=== PATIENT | female | born 1985 | race African-American/Black ===

== ENCOUNTER 2019-09-11 13:32 | Inpatient (IN) | payer BC, MEDICAID, OTHER ==
[2019-09-21] MEDS ORDERED: hydrALAZINE 20 MG/ML VIAL SLOW IVP PRN ×2 (16:06→23:15)
[2019-09-21] MEDS ORDERED: Ondansetron PF 4 MG/2 ML Vial IVP PRN ×3 (16:06→23:15)
[2019-09-21] MEDS ORDERED: Promethazine HCl 25 MG/ML VIAL IM PRN ×3 (16:06→23:15)
[2019-09-21 16:13] VITALS: BMI 37.5
[2019-09-21] MEDS ORDERED: Lactated Ringer's 1,000 ML IV SCH (16:15)
[2019-09-21 16:17] LABS: Hemoglobin 9.4 g/dL (12.0-16.0); Mean Corpuscular HGB CONC 34.5 g/dL (32.0-36.0); Mean Corpuscular Hemoglobin 30.5 pg (27.0-31.0); Mean Corpuscular Volume 88.5 fL (78.0-98.0); Mean Platelet Volume 7.8 fL (7.4-10.4); Platelet Count 266 thou/uL (130-400); RBC Distribution Width 13.9 % (11.5-14.5); Red Blood Cell (RBC) Count 3.07 mill/uL (4.20-5.40); White Blood Cell (WBC) Count 7.7 thou/uL (4.8-10.8)
[2019-09-21 16:57] LABS: Syphilis Antibody Nonreactive (Nonreactive); Syphilis Antibody Index 0.06 S/CO (<1.00 Non-Reactive)
[2019-09-21 16:58] LABS: HBSAg Index 0.26 S/CO (0-0.99); Hep B Surf Ag Non-Reactive S/CO (NonReactive)
[2019-09-21] MEDS ORDERED: CEFAZOLIN 2 GM in Premix Bag 1 BAG IVPB SCH (17:45)
[2019-09-21] MEDS ORDERED: Bicitra 30 ML UDCUP PO SCH (17:45)
--- NOTE | 2019-09-21 18:59 | PDOC.LDHP ---
Labor and Delivery H&P Chief complaint: scheduled section HPI: 34 y/o at 38 weeks and 2 days, presents for scheduled medically indicated . This patient has a history of macrosomia previously with 37 weeks . At that time the lower uterus was described as very thin with 11 and a 1/2 pound fetus. GDM negative at that time. This week, the patient was again suspected to have macrosomia with 11 pound 9 ounce EFW, and was furthermore breech. I feel given the thinner uterus and size of this fetus, the risk of life-threatening complications (including intra- operative hemorrhage, need to T the Uterus, Injury the Uterine vessels, Uterine Atony, and injury to the fetus during breech delivery, etc.) only increase with waiting. The society of Maternal Medicine has also indicated that Repeat C -section may be reasonable in some case at 38 weeks with high risk pregnancies such as this. This case was also discussed with Dr. Maurilio Manzano MD, [employer] supervisor of [employer] who agreed that 38 week delivery was very reasonable in this case for suspected macrosomia, repeat , and breech presentation. Current gestational age (weeks): 38 Grav: 6 Para: 3 Abnormal US findings: Yes ( Macrosomia) Current medications: pre- vitamins Previous surgical history: low tranverse CS Allergies/Adverse Reactions: Allergies Allergy/AdvReac Type Severity Reaction Status Date / Time No Known Allergies Allergy Verified 09/21/19 17:35 Social history: none - Physical Exam Vital signs reviewed and normal: yes General: NAD Heart: RRR Lungs: CTAB Abdomen: gravid Extremeties: no edema FHT: category 1 - Assessment L&D Assessment: scheduled repeat section - Plan Plan: admit to L&D, to OR for section
[2019-09-21] MEDS ORDERED: MORPHINE 5 MG/10 ML PF VIAL ONE (19:37)
[2019-09-21] MEDS ORDERED: EPINEPHrine 1 MG/ML AMP ONE (19:38)
[2019-09-21] MEDS ORDERED: Oxytocin 10 UNITS/ML VIAL ONE (19:38)
[2019-09-21] MEDS ORDERED: Ondansetron PF 4 MG/2 ML Vial ONE (19:38)
[2019-09-21] MEDS ORDERED: Dexamethasone 4 mg/ml Vial ONE (19:38)
[2019-09-21] MEDS ORDERED: ePHEDrine/0.9% NaCl/PF SYRINGE 50 mg/10 ml ONE (19:38)
[2019-09-21] MEDS ORDERED: Misoprostol 200 MCG TAB ONE (19:39)
[2019-09-21] MEDS ORDERED: Methylergonovine 0.2 MG/ML VIAL ONE (19:40)
[2019-09-21] MEDS ORDERED: Carboprost 250 MCG/ML AMP ONE (19:40)
[2019-09-21] MEDS ORDERED: PHENYLEPHRINE-NS 100 MCG/ML 10 ML SYRINGE ONE (19:54)
[2019-09-21] MEDS ORDERED: Naloxone HCl 0.4 mg/ml Vial IV PRN (20:33)
[2019-09-21] MEDS ORDERED: Promethazine HCl 25 MG SUPP PR PRN (20:33)
[2019-09-21] MEDS ORDERED: Naloxone HCl 0.4 mg/ml Vial IVP PRN ×2 (20:33)
[2019-09-21] MEDS ORDERED: diphenhydrAMINE 50 MG/ML VIAL IVP PRN (20:33)
[2019-09-21] MEDS ORDERED: Communication Order-Pharmacy FS SCH (20:45)
[2019-09-21] MEDS ORDERED: NS / Oxytocin 40 units/1000ml 1,000 ML ONE (21:22)
[2019-09-21] MEDS ORDERED: Ketorolac Tromethamine 30 MG/ML VIAL ONE (21:53)
[2019-09-21] MEDS: Ketorolac Tromethamine 30 MG/ML VIAL IVP PRN (21:57)
[2019-09-21] MEDS ORDERED: Lanolin Ointment 7 GM TUBE TOP PRN (23:15)
[2019-09-21] MEDS ORDERED: Bisacodyl 10 MG SUPP PR PRN (23:15)
[2019-09-21] MEDS ORDERED: diphenhydrAMINE 25 MG CAP PO PRN (23:15)
[2019-09-21] MEDS ORDERED: HYDROcodone/Acetaminophen 5/325 mg Tablet PO PRN (23:15)
[2019-09-21] MEDS ORDERED: Misoprostol 200 MCG TAB PR PRN (23:15)
[2019-09-21] MEDS ORDERED: Methylergonovine 0.2 MG/ML VIAL IM PRN (23:15)
[2019-09-21] MEDS ORDERED: Acetaminophen 325 MG TAB PO PRN (23:15)
[2019-09-21] MEDS ORDERED: Zolpidem Tartrate 5 MG TAB PO PRN (23:15)
[2019-09-21] MEDS ORDERED: Docusate Calcium (SURFAK) 240 MG CAP PO SCH (23:45)
[2019-09-21] MEDS ORDERED: NS / Oxytocin 40 units/1000ml 1,000 ML IV SCH (23:45)
[2019-09-21] MEDS ORDERED: Ferrous Sulfate 325 MG TAB PO SCH (23:45)
[2019-09-22 06:30] LABS: Hemoglobin 8.1 g/dL (12.0-16.0); Mean Corpuscular HGB CONC 33.7 g/dL (32.0-36.0); Mean Corpuscular Hemoglobin 30.4 pg (27.0-31.0); Mean Platelet Volume 7.7 fL (7.4-10.4); Platelet Count 219 thou/uL (130-400); RBC Distribution Width 13.7 % (11.5-14.5); Red Blood Cell (RBC) Count 2.67 mill/uL (4.20-5.40); White Blood Cell (WBC) Count 16.4 thou/uL (4.8-10.8)
[2019-09-22] MEDS: Ketorolac Tromethamine 30 MG/ML VIAL IVP PRN (07:45)
[2019-09-22] MEDS ORDERED: Varicella virus, LIVE 0.5 ML VIAL SC ONE (09:00)
[2019-09-22] MEDS ORDERED: Measles/Mumps/Rubella 10 MCG/0.5 ML VIAL SC ONE (09:00)
[2019-09-22] MEDS ORDERED: Adacel (T-DAP) 0.5 ML SYRINGE IM ONE (09:00)
[2019-09-22] MEDS: Ferrous Sulfate 325 MG TAB PO SCH ×2 (09:47→22:12)
[2019-09-22] MEDS: Prenatal Vitamin 1 TAB PO SCH (09:47)
[2019-09-22] MEDS: Simethicone Chewable 80 MG TAB PO PRN (09:48)
[2019-09-22] MEDS: HYDROcodone/Acetaminophen 5/325 mg Tablet PO PRN ×3 (09:48→22:11)
[2019-09-22] MEDS: Docusate Calcium (SURFAK) 240 MG CAP PO SCH ×2 (09:48→22:11)
--- NOTE | 2019-09-22 13:40 | PDOC.PP ---
Post Progress Note Post Day #: 1 PO intake tolerated: yes Flatus: yes Ambulation: yes Vital Signs (12 hours) Temp Pulse Resp BP Pulse Ox 09/22/19 12:02 97.7 F 88 20 101/67 09/22/19 08:31 97.9 F 100 20 101/61 93 L 09/22/19 06:00 18 09/22/19 04:00 97.9 F 101 H 18 100/60 97 Weight Weight 205 lb - Physical Examination General: NAD Cardiovascular: no m/r/g, RRR Respiratory: clear to auscultation bilaterally, non-labored breathing Abdominal: + bowel sounds, lochia, no distention, appropriately TTP Extremities: negative homans (B) Skin: CS incision dry & intact, no rash Neurological: no gross focal deficits Psychiatric: A&Ox3, normal affect (Patient showered, doing very well.) Result Diagrams: 09/22/19 05:57 Additional Labs: Post Labs Blood Type A POSITIVE 09/21/19 16:27 Hep Bs Antigen Non-Reactive S/CO (NonReactive) 09/21/19 15:54
[2019-09-22] MEDS: Ibuprofen 800 MG TAB PO SCH ×2 (13:44→22:12)
--- NOTE | 2019-09-22 20:45 | OP ---
DATE OF PROCEDURE: 09/21/2019 TIME: At 2014 hours, central standard time. PREOPERATIVE DIAGNOSES: Intrauterine at 38 weeks and two days with breech presentation, history of previous section, history of previous macrosomia, history of thin lower uterine segment of the uterus during prior section with suspected macrosomia at this time with fetus in a breech presentation. POSTOPERATIVE DIAGNOSES: Intrauterine at 38 weeks and two days with breech presentation, history of previous section, history of previous macrosomia, history of thin lower uterine segment of the uterus during prior section with suspected macrosomia at this time with fetus in a breech presentation. PROCEDURE PERFORMED: Repeat low transverse section. FINDINGS: Viable female weighing 4920 g or 10 pounds 13 ounces. Apgars of 8 and 9. QUANTITATIVE BLOOD LOSS: 850. COMPLICATIONS: None. DETAILS OF THE PROCEDURE: The patient was consented and taken back to the operating room where spinal anesthesia was found to be adequate. She was then prepped and draped in the normal sterile fashion. A timeout was performed by the entire operative team. The incision was then marked with a marking pen tested using sharp pickups. An incision was then made with a scalpel. The incision was carried through the adipose tissue down to the underlying rectus fascia using both sharp dissection as well as cautery. Once the fascia was identified, it was incised in the midline and then the fascial incision was carried through in both lateral directions using sharp as well as cautery dissection techniques. Next, the superior aspect of the rectus fascia was grasped with 2 Reema clamps, which was tented up and the rectus muscles were dissected off using blunt dissection as well as cautery dissection. Similarly, the inferior aspect of the fascial incision was grasped with 2 Reema clamps, tented up and the rectus muscles were dissected off bluntly as well as sharply. Next, the rectus muscles were in the midline and the peritoneum identified. The peritoneum was then carefully grasped with 2 hemostats and entered sharply. The peritoneal incision was extended superiorly and inferiorly and bladder blade was placed in the lower abdomen. At this point, the uterus was identified and the bladder flap was then developed using pickups with teeth as well as Metzenbaum scissors in both lateral directions. The bladder flap was then dissected downwards using the quarry plant crusher operator's finger as well as Metzenbaum scissors. The bladder blade was replaced. The lower uterine segment was then identified and entered sharply using a clean scalpel. The uterine incision was then dissected downwards until thin layer of muscle remained and this was entered bluntly using a hemostat to avoid any injury to the baby. The uterine incision was then stretched using two fingers in both lateral directions. An amniotomy was performed artificially using a hemostat and the baby was delivered using fundal pressure in a gentle fashion. Once out, the baby's mouth and nose were bulb suctioned, cord clamped and cut, and the baby was handed to waiting attendants. Next, the uterus was exteriorized, cleared of all clots and debris and the uterine incision was repaired with #1 Monocryl in a running locking fashion. A second suture of the same type was used to obtain complete hemostasis at the uterine incision. The bladder flap was reapproximated using 3-0 Monocryl. Next, patient's left and right adnexa were inspected and appeared to be within normal limits. The posterior cul-de-sac was blotted dry and hemostasis assured. One more look at the uterine incision demonstrated hemostasis. Next, the uterus was replaced back within the abdomen. The peritoneum was reapproximated using 2-0 Monocryl without difficulty. The rectus muscles were then allowed to come back together and 0 chromic was used to aid in reapproximation of the muscle as necessary. The rectus fascia was then reapproximated in a running fashion using 0 Vicryl suture. The adipose tissue was then examined and appeared to be well approximated without any obvious separations. Finally, the skin was reapproximated with 3-0 Monocryl on a Joao needle without difficulty and Dermabond adhesive was applied to the skin. Once the glue was dry, the drapes were removed and the patient was transferred to an ambulatory bed where she was taken to recovery awake and in stable condition. Sponge, lap, and needle counts were correct x3. Job ID: [id number]
[2019-09-23] MEDS: Ibuprofen 800 MG TAB PO SCH ×3 (05:18→21:30)
[2019-09-23] MEDS ORDERED: Ibuprofen 800 MG TAB PO SCH (06:00)
--- NOTE | 2019-09-23 07:54 | PRG ---
DATE OF SERVICE: 09/23/2019 Postoperative progress note. SUBJECTIVE: The patient is a 34-year-old female postop day 2 for repeat . For complete details, please refer to the operative note. The patient's course has been complicated by chronic anemia. Post delivery hemoglobin is 8.1, hematocrit 24, and platelets of 219,000; starting at a hemoglobin of 9.4, hematocrit 27.2, and platelets of 266,000. Today, she reports that she is tolerating p.o. She is having more pain issues this morning, but also admits that she has not been taking her pain medicine regularly. She reports she is having decreased lochia and is ambulating. OBJECTIVE: VITAL SIGNS: Most current vital signs; blood pressure is 108/57, temperature 98.3, and pulse of 88. GENERAL: She appears to be in no acute distress. She is alert, oriented, cooperative, and pleasant to interact with. HEENT: Head is normocephalic and atraumatic. Fundus is firm. Incision is clean, dry, and intact. EXTREMITIES: Nontender with minimal symmetrical edema. ASSESSMENT AND PLAN: 1. The patient is a 34-year-old female, postop day status post repeat . We have talked about her taking her pain medicine on a regular basis today to see if it is sufficient to cover her pain. I have also discussed the effects of narcotics, the with regular breast-feeding, and to watch for signs of sedation over the next several days with kee days being day 4, day 5. 2. Anemia. The patient has chronic anemia and has had less than average blood loss for the . Keeping her hemoglobin well within the acceptable range for her at 8.1 and 24. The patient, at the time of discharge, will be continued on iron. 3. Anticipate discharge tomorrow. Job ID: [id number]
[2019-09-23] MEDS: Prenatal Vitamin 1 TAB PO SCH (08:19)
[2019-09-23] MEDS: Ferrous Sulfate 325 MG TAB PO SCH ×2 (08:19→21:31)
[2019-09-23] MEDS: Simethicone Chewable 80 MG TAB PO PRN (08:19)
[2019-09-23] MEDS: HYDROcodone/Acetaminophen 5/325 mg Tablet PO PRN ×2 (08:19→12:29)
[2019-09-23] MEDS: Docusate Calcium (SURFAK) 240 MG CAP PO SCH ×2 (08:19→21:31)
[2019-09-24] MEDS: HYDROcodone/Acetaminophen 5/325 mg Tablet PO PRN ×2 (00:21→09:18)
[2019-09-24] MEDS: Ibuprofen 800 MG TAB PO SCH (05:34)
[2019-09-24 05:53] VITALS: TEMP 98.5
--- NOTE | 2019-09-24 06:20 | PDOC.PP ---
Post Progress Note Post Day #: 2 Subjective: Feels well PO intake tolerated: yes Flatus: yes Ambulation: yes Vital Signs (12 hours) Temp Pulse Resp BP Pulse Ox 09/24/19 05:30 98.5 F 90 18 116/66 98 09/24/19 00:15 98.3 F 94 18 120/66 98 09/23/19 20:05 99.5 F 91 18 106/64 98 Weight Weight 205 lb Past vitals for 24 hrs reviewed - Physical Examination Cardiovascular: no m/r/g Respiratory: non-labored breathing Abdominal: + bowel sounds, lochia, no distention, appropriately TTP Extremities: negative homans (B) Skin: CS incision dry & intact, no rash (Dermabond) Result Diagrams: 09/22/19 05:57 Additional Labs: Post Labs Blood Type A POSITIVE 09/21/19 16:27 Hep Bs Antigen Non-Reactive S/CO (NonReactive) 09/21/19 15:54 (1) delivery delivered Code(s): O82 - ENCOUNTER FOR DELIVERY WITHOUT INDICATION Status: Acute - Assessment/Plan POD2...doing well. Desires to go home today. Incision C/D/I and no indication of complication. F/U in 2-3 weeks.
[2019-09-24 08:09] VITALS: BP 102/56
[2019-09-24] MEDS: Prenatal Vitamin 1 TAB PO SCH (09:17)
[2019-09-24] MEDS: Simethicone Chewable 80 MG TAB PO PRN (09:17)
[2019-09-24] MEDS: Docusate Calcium (SURFAK) 240 MG CAP PO SCH (09:18)
[2019-09-24] MEDS: Ferrous Sulfate 325 MG TAB PO SCH (09:18)
== END 2019-09-24 11:43 | disposition home or self-care (01) | DRG 788 ==
LOC: L&D 09-21 14:56 → 3SW 09-21 22:43 → EDSTATUS 09-23 09:48
PROVIDERS: ADMIT Obstetrics & Gynecology; ATTEND Obstetrics & Gynecology
PROC: 10D00Z1 Extraction of Products of Conception, Low, Open Approach (ICD-10-PCS; principal; 2019-09-21)
DX: O34.211 Maternal care for low transverse scar from previous cesarean delivery (principal); Z3A.38 38 weeks gestation of pregnancy; Z37.0 Single live birth; O99.02 Anemia complicating childbirth; D64.9 Anemia, unspecified; O36.63X0 Maternal care for excessive fetal growth, third trimester, not applicable or unspecified; O32.1XX0 Maternal care for breech presentation, not applicable or unspecified
CPT/HCPCS: 36415; 36430; 85027; 86780; 86850; 86900; 86901; 87340; J0171; J1100; J1885; J2210; J2274; J2405; J2590; J3490